=== PATIENT | male | born 1930 | race Caucasian/White ===

== ENCOUNTER 2020-04-10 11:21 | Emergency (ER) | payer MEDICARE, BC ==
[~2020-04-10] VITALS: Ht 182.9 cm; Wt 99.8 kg
== END 2020-04-10 11:56 | disposition home or self-care (01) ==
LOC: ER 11:21
DX: R33.9 Retention of urine, unspecified (principal); R39.198 Other difficulties with micturition
CPT/HCPCS: 99282